=== PATIENT | female | born 1935 | race Native Hawaiian/Other Pacific Islander ===

== ENCOUNTER 2016-11-15 12:05 | Outpatient (CLI) | payer OTHER ==
[~2016-11-15 12:05] MED LIST: CARV12.5 PO; CELEBREX200 MG PO; CLIN300C PO; CRESTOR20 MG PO; EZET10TA13 OR; FURO40TA93 PO; LEVO0.0529 PO; LYRICA75 MG OR; OMEP40CA PO; PLAVIX75 MG PO; POTA20TA4 PO; PX ASPIRIN325 MG OR; RANO1000T PO; SOMA350 MG PO; SOTA80TA2 PO; TRAM50TA PO; TRAMADL/APAP1 TAB OR; Voltaren
== END 2016-11-15 19:32 | disposition home or self-care (01) ==
LOC: LABW 12:05
DX: I48.0 Paroxysmal atrial fibrillation (principal)
CPT/HCPCS: 36415; 85610

== ENCOUNTER 2016-12-26 12:24 | Outpatient (CLI) | payer OTHER | END 2016-12-26 23:43 | disposition home or self-care (01) | LOC: LABW 12:24 | DX: I48.0 Paroxysmal atrial fibrillation (principal) | CPT/HCPCS: 36415; 85610 ==

== ENCOUNTER 2017-01-26 13:09 | Outpatient (CLI) | payer OTHER | END 2017-01-26 21:40 | disposition home or self-care (01) | LOC: LABW 13:09 | DX: I48.0 Paroxysmal atrial fibrillation (principal) | CPT/HCPCS: 36415; 85610 ==

== ENCOUNTER 2017-02-18 17:40 | Emergency (ER) | payer OTHER ==
[~2017-02-18] VITALS: Ht 162.6 cm; Wt 90.7 kg
[2017-02-18 20:04] VITALS: BP 148/98; TEMP 98.3
== END 2017-02-18 19:55 | disposition home or self-care (01) ==
LOC: ED 17:40
DX: M16.11 Unilateral primary osteoarthritis, right hip (principal); M25.451 Effusion, right hip
CPT/HCPCS: 99283

== ENCOUNTER 2017-02-27 12:58 | Outpatient (CLI) | payer OTHER | END 2017-02-27 22:40 | disposition home or self-care (01) | LOC: LABW 12:58 | DX: I48.0 Paroxysmal atrial fibrillation (principal) | CPT/HCPCS: 36415; 85610 ==

== ENCOUNTER 2017-03-06 12:50 | Outpatient (CLI) | payer OTHER | END 2017-03-06 19:10 | disposition home or self-care (01) | LOC: LABW 12:50 | DX: Z79.899 Other long term (current) drug therapy (principal) | CPT/HCPCS: 36415; 82784 ==

== ENCOUNTER 2017-03-27 12:19 | Outpatient (CLI) | payer OTHER | END 2017-03-27 13:05 | disposition home or self-care (01) | LOC: LABW 12:19 | DX: I48.0 Paroxysmal atrial fibrillation (principal) | CPT/HCPCS: 36415; 85610 ==

== ENCOUNTER 2017-04-17 13:07 | Outpatient (CLI) | payer OTHER | END 2017-04-17 14:45 | disposition home or self-care (01) | LOC: MAMMO 13:07 | DX: Z12.31 Encounter for screening mammogram for malignant neoplasm of breast (principal) | CPT/HCPCS: G0202-TC ==

== ENCOUNTER 2017-05-01 13:05 | Outpatient (CLI) | payer OTHER | END 2017-05-01 14:45 | disposition home or self-care (01) | LOC: LAB 13:05 → MAMMO 13:05 | DX: R92.2 Inconclusive mammogram (principal); I48.0 Paroxysmal atrial fibrillation | CPT/HCPCS: 36415; 85610; G0206-TC ==

== ENCOUNTER 2017-05-18 10:01 | Outpatient (CLI) | payer OTHER ==
[2017-05-18 10:34] LABS: PLATELET COUNT 237 K/uL (152-353)
[2017-05-18 10:42] LABS: POTASSIUM 4.7 mmol/L (3.6-5.2); SODIUM 138 mmol/L (136-145)
== END 2017-05-18 19:09 | disposition home or self-care (01) ==
LOC: LABW 10:01
PROVIDERS: Internal Medicine Cardiovascular Disease
DX: I10 Essential (primary) hypertension (principal); E03.8 Other specified hypothyroidism; I48.0 Paroxysmal atrial fibrillation
CPT/HCPCS: 36415; 80053; 80061; 81000; 84439; 84443; 85027; 85610

== ENCOUNTER 2017-06-22 12:28 | Outpatient (CLI) | payer OTHER | END 2017-06-22 13:30 | disposition home or self-care (01) | LOC: LABW 12:28 | DX: I48.0 Paroxysmal atrial fibrillation (principal) | CPT/HCPCS: 36415; 85610 ==

== ENCOUNTER 2017-07-03 12:38 | Outpatient (CLI) | payer OTHER | END 2017-07-03 13:40 | disposition home or self-care (01) | LOC: LABW 12:38 | DX: Z79.899 Other long term (current) drug therapy (principal); Z51.81 Encounter for therapeutic drug level monitoring | CPT/HCPCS: 82784 ==

== ENCOUNTER 2017-07-27 10:40 | Outpatient (CLI) | payer OTHER | END 2017-07-27 19:15 | disposition home or self-care (01) | LOC: LABW 10:40 | DX: I48.0 Paroxysmal atrial fibrillation (principal) | CPT/HCPCS: 36415; 85610 ==

== ENCOUNTER 2017-08-27 13:43 | Outpatient (CLI) | payer OTHER | END 2017-08-27 19:32 | disposition home or self-care (01) | LOC: LABW 13:43 | DX: I48.0 Paroxysmal atrial fibrillation (principal) | CPT/HCPCS: 36415; 85610 ==

== ENCOUNTER 2017-09-22 15:34 | Emergency (ER) | payer OTHER ==
[~2017-09-22] VITALS: Ht 162.6 cm; Wt 90.7 kg
[2017-09-22 15:47] VITALS: TEMP 97.7
[2017-09-22 16:14] LABS: PLATELET COUNT 228 K/uL (152-353)
[2017-09-22 16:22] LABS: POTASSIUM 4.3 mmol/L (3.6-5.2); SODIUM 136 mmol/L (136-145)
[2017-09-22 20:15] VITALS: BP 154/78
== END 2017-09-22 20:22 | disposition home or self-care (01) ==
LOC: ED 15:34
DX: N28.1 Cyst of kidney, acquired (principal); K57.30 Diverticulosis of large intestine without perforation or abscess without bleeding; R10.31 Right lower quadrant pain
CPT/HCPCS: 36415; 80053; 81000; 85027; 96374; 99284; J1885; Q9963

== ENCOUNTER 2017-09-28 10:04 | Emergency (ER) | payer OTHER ==
[~2017-09-28] VITALS: Ht 162.6 cm; Wt 90.7 kg
[2017-09-28 11:45] VITALS: BP 147/86; TEMP 98
== END 2017-09-28 11:45 | disposition home or self-care (01) ==
LOC: ED 10:04
DX: M54.5 Low back pain (principal); G89.29 Other chronic pain
CPT/HCPCS: 96372; 99283; J1100; J1170; J2360

== ENCOUNTER 2017-10-03 09:40 | Outpatient (CLI) | payer OTHER ==
[2017-10-04] MEDS ORDERED: WARF2.5T8 PO (11:57)
[2017-10-04] MEDS ORDERED: RANO1000T PO (11:57)
[2017-10-04] MEDS ORDERED: FURO20TA67 PO (11:57)
[2017-10-04] MEDS ORDERED: BETAPACE80 MG PO (11:58)
[2017-10-04] MEDS ORDERED: AMLO2.5T PO (11:58)
[2017-10-04] MEDS ORDERED: LEVO-T75 MCG PO (11:58)
[2017-10-04] MEDS ORDERED: GNC POTASSIUM595 MG PO (11:59)
[2017-10-04] MEDS ORDERED: LISI5TAB10 PO (11:59)
[2017-10-04] MEDS ORDERED: CRESTOR20 MG PO (12:00)
[2017-10-04] MEDS ORDERED: TRAMADOL HCL E100 M1 PO (12:01)
[2017-10-04] MEDS ORDERED: KETO10TA34 PO (12:02)
[2017-10-04] MEDS ORDERED: ZANAFLEX2 MG PO (12:02)
== END 2017-10-03 09:47 | disposition short-term general hospital (02) ==
LOC: AMB 09:40
DX: M54.5 Low back pain (principal)
CPT/HCPCS: A0425; A0427

== ENCOUNTER 2017-10-03 09:47 | Inpatient (IN) | payer OTHER ==
[2017-10-03] VITALS (9 sets, daily range): BP systolic 127–187; BP diastolic 60–80; TEMP 98–98.7; Ht 162.6 cm; Wt 93.2 kg
[~2017-10-03] VITALS: Ht 162.6 cm; Wt 93.2 kg
[2017-10-03 10:35] LABS: PLATELET COUNT 244 K/uL (152-353)
[2017-10-03 10:49] LABS: POTASSIUM 3.8 mmol/L (3.6-5.2); SODIUM 137 mmol/L (136-145)
[2017-10-04 00:25] VITALS: BP 159/70; TEMP 97.9
[2017-10-04 04:00] VITALS: BP 149/60; TEMP 97.7
[2017-10-04 05:50] LABS: POTASSIUM 4.1 mmol/L (3.6-5.2); SODIUM 139 mmol/L (136-145)
[2017-10-04 08:00] VITALS: BP 136/61; TEMP 97.6
[2017-10-04 11:49] VITALS: BP 136/56; TEMP 97.6
[2017-10-04] MEDS ORDERED: FURO20TA67 PO (11:57)
[2017-10-04] MEDS ORDERED: WARF2.5T8 PO (11:57)
[2017-10-04] MEDS ORDERED: RANO1000T PO (11:57)
[2017-10-04] MEDS ORDERED: BETAPACE80 MG PO (11:58)
[2017-10-04] MEDS ORDERED: LEVO-T75 MCG PO (11:58)
[2017-10-04] MEDS ORDERED: AMLO2.5T PO (11:58)
[2017-10-04] MEDS ORDERED: LISI5TAB10 PO (11:59)
[2017-10-04] MEDS ORDERED: GNC POTASSIUM595 MG PO (11:59)
[2017-10-04] MEDS ORDERED: CRESTOR20 MG PO (12:00)
[2017-10-04] MEDS ORDERED: TRAMADOL HCL E100 M1 PO (12:01)
[2017-10-04] MEDS ORDERED: KETO10TA34 PO (12:02)
[2017-10-04] MEDS ORDERED: ZANAFLEX2 MG PO (12:02)
[2017-10-04 16:02] VITALS: BP 143/68; TEMP 98.7
[2017-10-04 20:00] VITALS: BP 103/52; TEMP 98.1
[2017-10-05] VITALS (13 sets, daily range): BP systolic 75–122; BP diastolic 40–77; TEMP 97.5–98.2
[2017-10-05 05:37] LABS: PLATELET COUNT 225 K/uL (152-353); POTASSIUM 4.2 mmol/L (3.6-5.2); SODIUM 133 mmol/L (136-145)
[2017-10-05 21:26] LABS: POTASSIUM 5.4 mmol/L (3.6-5.2)
[2017-10-06] VITALS (17 sets, daily range): BP systolic 93–121; BP diastolic 35–93; TEMP 98–101.7
[2017-10-06 05:37] LABS: PLATELET COUNT 177 K/uL (152-353)
[2017-10-06 06:23] LABS: POTASSIUM 6.2 mmol/L (3.6-5.2)
[2017-10-06 11:25] LABS: PARTIAL THROMBOPLASTIN TIME 37.9 SECONDS (24.5-33.6)
== END 2017-10-06 13:00 | disposition expired | DRG 551 ==
LOC: ED 09:47 → MED/SURG 16:00 → ICU 16:00
PROVIDERS: Internal Medicine; ADMIT Family Medicine
PROC: 05H533Z Insertion of Infusion Device into Right Subclavian Vein, Percutaneous Approach (ICD-10-PCS; principal; 2017-10-06)
DX: M51.36 Other intervertebral disc degeneration, lumbar region (principal); A41.89 Other specified sepsis; J96.01 Acute respiratory failure with hypoxia; I21.3 ST elevation (STEMI) myocardial infarction of unspecified site; N17.8 Other acute kidney failure; E87.2 Acidosis; R33.8 Other retention of urine; E66.01 Morbid (severe) obesity due to excess calories; Z68.34 Body mass index [BMI] 34.0-34.9, adult; Z71.3 Dietary counseling and surveillance; M81.8 Other osteoporosis without current pathological fracture; I10 Essential (primary) hypertension; E03.8 Other specified hypothyroidism; K59.09 Other constipation; R53.1 Weakness; I25.10 Atherosclerotic heart disease of native coronary artery without angina pectoris; I95.89 Other hypotension; I87.8 Other specified disorders of veins; E86.0 Dehydration
CPT/HCPCS: 36415; 36600; 51702; 80048; 80053; 81000; 82150; 82550; 82553; 82805; 83605; 83690; 83880; 84484; 85027; 85379; 85610; 85651; 85730; 87040; 87077; 87185; 87186; 87205; 93005; 94760; 96360; 96361; 96367; 96374; 96375; 99284; C1768; J1170; J1200; J1644; J1650; J1885; J2310; J2405; J3490